=== PATIENT | female | born 2000 | race Hispanic/Latino ===

== ENCOUNTER 2019-12-19 07:54 | Outpatient (CLI) | payer BC, OTHER ==
--- NOTE | 2019-12-19 08:44 | ULT ---
LEFT BREAST ULTRASOUND: COMPARISON: None. HISTORY: Palpable ridge in the upper aspect of the left breast. The patient breast fed until 6 months ago. TECHNIQUE: Multiplanar, bender scale, and color Doppler images were obtained in a targeted ultrasound of the upper aspect of the left breast. FINDINGS: Normal-appearing breast parenchyma is seen. There are a few dilated ducts likely secondary to recent breast feeding. No suspicious mass or shadowing is seen in the breast. IMPRESSION: BIRADS category 2 - benign findings. Annual screening mammography is recommended at the age of 40.
== END 2019-12-19 07:55 | disposition home or self-care (01) ==
LOC: BICULT 07:54
PROVIDERS: ATTEND Nurse Practitioner
DX: Z30.42 Encounter for surveillance of injectable contraceptive (principal); N60.42 Mammary duct ectasia of left breast